=== PATIENT | male | born 1940 | race Caucasian/White ===

== ENCOUNTER 2020-08-04 11:16 | Outpatient (CLI) | payer BC, SELFPAY ==
--- NOTE | ~2020-08-04 | US_ITS ---
EXAMINATION: US abdomen complete DATE: 08/04/2020 11:47 INDICATION: Generalized abdominal pain. TECHNIQUE: Multiple grayscale and Doppler ultrasound images of the abdomen were obtained. COMPARISON: CT abdomen and pelvis 08/04/2017 FINDINGS: The visualized portions of the head, body, and tail of the pancreas are normal. The liver i s normal without focal lesion. There is normal flow in main portal vein. The gallbladder is normal in size. No gallstones or gallbladder wall thickening. There was no sonographic Garcia sign. The common duct is normal and measures 3 mm. The spleen is normal in size. The kidneys are normal in size. Ther e is a 1.3 cm cyst in left kidney. The abdominal aorta is obscured by bowel gas. The inferior vena ca va is normal. IMPRESSION: 1. No etiology for the patient's symptoms. Reviewed, dictated and finalized at location A. BLOCKER
[2020-08-04 12:33] LABS: Basophils Percent Auto 0.3 % (0.2-1.2); Eosinophils Absolute Auto 0.1 K/mm3 (0-0.3); Eosinophils Percent Auto 1.2 % (0-4.4); Hematocrit 45.9 % (42.0-52.0); Hemoglobin 15.4 g/dL (14.0-18.0); Immature Granulocyte Absolute 0.02 K/mm3 (0.00-0.031); Immature Granulocyte Percent A 0.3 % (0-0.5); Lymphocytes Absolute Auto 1.45 K/mm3 (0.9-3.2); Lymphocytes Percent Auto 24.7 % (18.3-44.2); Mean Corpuscular HGB Conc 33.6 g/dl (32-36); Mean Corpuscular Hemoglobin 28.8 pg (26-34); Mean Platelet Volume 9.2 fl (7.4-10.4); Monocytes Absolute Auto 0.5 K/mm3 (0.1-0.6); Monocytes Percent Auto 7.7 % (2.6-8.5); Neutrophils Absolute Auto 3.9 K/mm3 (1.3-6.7); Neutrophils Percent Auto 65.8 % (45.5-73.1); Platelet Count Result 264 k/mm3 (150-375); Red Blood Count 5.34 M/mm3 (4.6-6.20); Red Cell Distribution Width 13.1 % (11.5-14.5); White Blood Count 5.9 K/mm3 (4.5-10.0)
[2020-08-04 12:44] LABS: Alanine Aminotransferase 28 U/L (4-50); Alkaline Phosphatase 80 U/L (38-126); Amylase 51 U/L (30-110); Anion Gap 6 mmol/L (8-16); Aspartate Amino Transferase 34 U/L (17-59); Bilirubin,Total 1.1 mg/dL (0.2-1.3); Blood Urea Nitrogen 13 mg/dL (9-20); Calcium 8.6 mg/dL (8.4-10.2); Carbon Dioxide 28 mmol/L (22-30); Chloride 103 mmol/L (98-107); Estimated Glomerular Filt Rate > 60; Glucose 99 mg/dL (75-110); Lipase 100 U/L (23-300); Potassium 4.1 mmol/L (3.4-5.0); Sodium 137 mmol/L (137-145)
== END 2020-08-04 11:17 | disposition home or self-care (01) ==
LOC: ANHIMG 11:16
PROVIDERS: PCP Family Medicine; Visit Provider Physician Assistant Medical
DX: R10.11 Right upper quadrant pain (principal)
CPT/HCPCS: 36415; 76700; 80053; 82150; 83690; 85025

== ENCOUNTER 2020-08-20 09:24 | Outpatient (CLI) | payer BC, SELFPAY ==
--- NOTE | ~2020-08-20 | NM_ITS ---
NM hepatobiliary w pharm Procedure: Hepatobiliary scan performed following IV administration 5.1 mCi Tc 99m Choletec. At 60 m inutes 1.9 mcg CCK administered IV for evaluation of gallbladder ejection fraction. Indication: Right upper quadrant pain Comparison: Ultrasound dated 08/04/2020 Findings: There is normal radiotracer uptake in the liver parenchyma with prompt excretion into the b iliary tract. Gallbladder visualized at 25 minutes. Small bowel visualized at 60 minutes. Gallbla dder ejection fraction measures 31 %. (Normal is considered 10-90%, but most patients with gallbladde r dysfunction have GBEF of less than 35%) Impression: 1: Low gallbladder ejection fraction measuring 31%. Low GBEF is associated with gallbladder dysfunct ion, although not specific for acute or chronic cholecystitis. Reviewed, dictated and finalized at location A. Impression: 1: Low gallbladder ejection fraction measuring 31%. Low GBEF is associated wit h gallbladder dysfunction, although not specific for acute or chronic cholecyst itis.
== END 2020-08-20 09:25 | disposition home or self-care (01) ==
PROVIDERS: PCP Family Medicine; Visit Provider Physician Assistant Medical
DX: R10.11 Right upper quadrant pain (principal)
CPT/HCPCS: 78227; A9537; J2805

== ENCOUNTER 2022-02-10 06:38 | Outpatient (CLI) | payer BC, SELFPAY ==
--- NOTE | ~2022-02-10 | MR_ITS ---
EXAMINATION: MR shoulder LT wo con DATE: 02/10/2022 07:47 INDICATION: Left shoulder pain. TECHNIQUE: Magnetic resonance imaging (MRI) of the left shoulder was performed without intravenous co ntrast. Sequences included axial PD-weighted FS FSE, coronal oblique PD-weighted FS FSE and T2-weight ed FS FSE, and sagittal oblique T2-weighted FS FSE and T1-weighted FSE. COMPARISON: Left shoulder radiographs 12/23/21 FINDINGS: Coracoacromial arch: The acromion undersurface is curved in morphology with anterior hook (type III). There is severe acro mioclavicular joint osteoarthritis. There is mild subacromial/subdeltoid bursitis. Rotator cuff: There is a full-thickness tear of supraspinatus tendon measuring 9 mm anterior to posterior by 6 mm p roximal to distal. There is mild infraspinatus tendinopathy. Teres minor tendon is normal. There is m ild subscapularis tendinopathy. There is no asymmetric fatty atrophy of the rotator cuff muscle eduardo es. Biceps tendon and glenoid labrum: Biceps tendon is in bicipital groove. There is mild intra-articular biceps tendinopathy. There is tea ring of superior and posterior glenoid labrum. Fluid: There is a small glenohumeral joint effusion. Bones/cartilage: There is partial-thickness cartilage loss of glenoid, deep at the posterior glenoid. There is partial -thickness cartilage loss of humeral head. Osteophytes are noted. IMPRESSION: 1. Full-thickness rotator cuff tear. 2. Moderate glenohumeral joint chondrosis. 3. Severe acromioclavicular joint osteoarthritis. 4. Small glenohumeral joint effusion and mild subacromial/subdeltoid bursitis. 5. Mild intra-articular biceps tendinopathy. Reviewed, dictated and finalized at location A.
== END 2022-02-10 06:39 | disposition home or self-care (01) ==
PROVIDERS: PCP Family Medicine; Visit Provider Orthopaedic Surgery
DX: M75.102 Unspecified rotator cuff tear or rupture of left shoulder, not specified as traumatic (principal); M19.012 Primary osteoarthritis, left shoulder; M25.412 Effusion, left shoulder; M75.52 Bursitis of left shoulder
CPT/HCPCS: 73221

== ENCOUNTER 2022-03-29 02:04 | Day surgery (SDC) | payer BC, SELFPAY ==
[2022-03-18 12:30] VITALS: BMI 31.4
--- NOTE | 2022-03-18 12:36 | PC.NURSE ---
Report to the Outpatient Waiting Room, entrance under the green pavilion located off [facility], at time ____0830___ on date __03/29/22 . Planned Procedure Time: __1030 . Time changes happen often and if your time is changed the preop area will call you the afternoon before. - You and your visitor will be asked to self-screen and do not enter if you have any COVID symptoms. - We encourage only one visitor and NO visitors under age 16 are allowed at this time. Your visitor will receive communication by the phone number that is given day of service. - The patient visitor is requested to social distance or may leave the building when not with patient due to restrictions. - A mask is required within the hospital. Patients may have clear liquids (water, carbonated beverages, clear teas, apple juice) until 3 hours prior to surgery (0730 AM) with a maximum of 20 ounces. - No food from midnight until time of surgery - Infants may have breast milk until 4 hours before surgery, infant formula 6 hours prior to surgery. - Children will be allowed to drink immediately following surgery. If applicable, please bring a bottle or sippy cup to assist with drinking. Juice, water, soda, and popsicles are readily available. For infants on formula, please bring formula the day of surgery. Pacifiers are allowed. Take the following medications with a SIP of water the morning of surgery: _NONE__ Medications to discontinue per physician _RIVAROXABAN PER DR. ALEMAN'S INSTRUCTIONS_ Date to take last dose Please no make-up, nail ugandan, hairspray, perfume, deodorant, or body powder the day of surgery. No jewelry (including any body piercings) or valuables the day of surgery, leave them at home. Please take a shower or bath the night before, or the morning of, surgery with an antibacterial soap. Wear comfortable, loose fitting clothing. Children are encouraged to wear pajamas. - Jewelry must be removed prior to entering the operating room. Rings and piercings that are not removed may be cut off. - The hospital will not accept responsibility for valuables. - Please leave all valuables, including medications, at home the day of surgery. If you are going home after surgery, a licensed bung driver must drive you home. - NO public transportation without another adult. - We recommend that an adult stay with you for 24 hours following discharge. - We also recommend that you do not drive, make important decision, drink alcoholic beverages, or take any drugs that were not prescribed by your health care provider for at least 24 hours after your discharge time. For Pediatric surgeries, we recommend two adults accompany the child home. Follow any additional instructions given to you from your surgeon. If you or anyone in your household have experienced Covid symptoms in the past week, please notify your surgeon or the nurse liaison at the phone number below for possible testing. Telephone instructions given to ____PT and asked if any additional questions and then verbalized understanding. Patient advised to call surgeon office or pre surgery nurse liaison [phone] if any additional questions.
[2022-03-29] VITALS (8 sets, daily range): BP systolic 112–148; BP diastolic 64–82; PULSE 60–76; RESP 12–17; TEMP 36.4–36.6; O2SAT 94–100
[2022-03-29] MEDS: ACETAMINOPHEN 500 MG TABLET 1000 MG PO (09:13)
[2022-03-29] MEDS: LACTATED RINGERS 1,000 ML 30 ML IV CONT (09:15)
[2022-03-29] MEDS: KETOROLAC 15 MG/ML VIAL (*BKC) IV PUSH (09:15)
--- NOTE | 2022-03-29 09:34 | WPDHPUPDATE1 ---
History and Physical Update Update Date/Time: 03/29/22 09:34 History and Physical has been reviewed, including an updated exam of the patient. There are NO changes in the patient's condition. Risks, benefits, and alternatives have been discussed and questions answered. Patient agrees to proceed with procedure.
--- NOTE | 2022-03-29 09:35 | WPDANESEPPF ---
Anes - Initial Pre Proc Eval Procedure: Operation Date: 03/29/22 10:30 Proposed Procedures p Left Rotator Cuff Repair with Distal Clavicle Excision - Barron Boyd MD Date/Time: 03/29/22 09:35 Surgeon: Barron Boyd MD Pre Op Diagnosis: Lt Rot Cuff Tear, AC Arthritis Patient Data Age: 82 Gender: M Height: 1.7 m Weight: 89.8 kg Last Vital Signs Temp 36.6 C 03/29/22 08:59 Pulse 60 03/29/22 08:59 Resp 16 03/29/22 08:59 BP 148/66 H 03/29/22 08:59 Pulse Ox 99 03/29/22 08:59 O2 Del Method Room Air 03/29/22 08:59 Allergies Allergy/AdvReac Type Severity Reaction Status Date / Time No Known Allergies Allergy Verified 03/29/22 08:36 Home Medications Medication Instructions Recorded Confirmed Type finasteride 5 mg tablet 5 mg PO DAILY 06/11/19 03/29/22 History terazosin 5 mg capsule 5 mg PO DAILY 06/11/19 03/29/22 History rivaroxaban 20 mg tablet (Xarelto) 20 mg PO QPM #90 tabs 12/22/21 03/29/22 Rx omeprazole 20 mg capsule,delayed 20 mg PO DAILY #90 caps 12/24/21 03/29/22 Rx release rosuvastatin 10 mg tablet See Rx Instructions .Route 01/14/22 03/29/22 Rx .COMPLEX #90 tabs Patient hx anesthesia problems: none Family hx anesthesia problems: other (collapsed lung) Results Review: All pre-operative results and documents have been reviewed as part of the pre-operative evaluation. [facility] Past Medical History Medical History Abdominal pain Acute hemorrhoid Arthritis of left acromioclavicular joint BMI 29.0-29.9,adult BMI 30.0-30.9,adult BMI greater than 30 Constipation Factor 5 Leiden mutation, heterozygous Flatulence History of blood clots History of pulmonary embolism Left rotator cuff tear Surgical History Surgical History H/O shoulder surgery right rotator cuff repair 2004 History of knee joint replacement right TKA x2 - revision 2000 Family History Family History Mother Cerebrovascular accident Diabetes mellitus Acute myocardial infarction Heart disease Other Tuberculosis Father Acute myocardial infarction Sibling Diabetes mellitus Social History Social History Smoking status: Never smoker Tobacco type: cigarettes Second hand tobacco smoke exposure: Yes Additional smoking assessment comments: Pt stated he tried it but never kept smoking Alcohol intake: current Alcohol use details: STATES OCCASIONAL BEER WHEN GOLFING 10/MONTH MAYBE Substance use: never Substance use type: does not use Living arrangements: with family 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 Gender identity (if verbalized by the patient): Male Sexual Orientation (if Verbalized by the Patient): Straight or Heterosexual Spiritual care concerns: Yes ( Caodaism) Agree to blood products: No Anes - Eval Final PreProcedure Day of Procedure 03/29/22 09:35 Patient weight: overweight Heart: regular rate and rhythm Lungs: clear to auscultation Airway: Mallampati scale class II Neurological: other (hard of hearing) Last oral intake: >/= 8 hours ASA classification: III Emergent: no Anesthetic plan: proceed Anesthesia type and monitoring: general ETT and standard monitoring Results Review: All pre-operative results and documents have been reviewed as part of the pre-operative evaluation. Informed Consent: The patient's anesthetic plan and its attendant risks and benefits were discussed with the patient/family/POA. Questions were solicited and answers provided to the satisfaction of the patient/family/POA.
--- NOTE | 2022-03-29 09:59 | WPDANESPNB ---
Anes - Peripheral Nerve Block Date/Time: 03/29/22 09:59 I have discussed with the patient/family/POA the placement of a peripheral nerve block for post-operative pain management, including associated risks, benefits, complications, and side effects. Alternative methods of post-operative analgesia were detailed. Questions were solicited and answers provided to the satisfaction of the patient/family/POA. Time-Out: A pre-procedural Time-Out was completed immediately before starting the procedure and confirmed: Patient Identification, Site, Procedure, Patient Position and the Availability of Requisite Equipment. Clinical Indications: Acute post-operative pain management requested by the operative surgeon. Nerve Block Insertion Note Anes-nerve block: interscalene left Patient position: other (sitting) Skin prep: chlorhexidine Needle: 22 gauge, stimulating, insulated echogenic needle. Needle length: 50 mm Technique: nerve stimulation lost at (mA) (0.3) and ultrasound Technique comment: mid2mg [id number] Injectate: bupivacaine 0.5% with epi 5 mcg/ml (30ml no epi) and dexamethasone (mg) (4) Observations: tolerated well Complications: none Procedure start time:: 954 Procedure end time:: 1001
[2022-03-29] MEDS: ceFAZolin 2 GM/D5W 50 ML 2 GM/50 ML BAG IVPB (10:16)
[2022-03-29] MEDS: BUPIVACAINE/EPINEPHRINE 0.25% 50 ML VIAL 10 ML INFILTRATE (10:49)
--- NOTE | 2022-03-29 11:26 | W.PM.PROC2 ---
Procedure Note - Detailed Date of Procedure 03/29/22 Pre-op Diagnosis Lt Rot Cuff Tear, AC Arthritis Post-op Diagnosis Same Procedure Performed Left shoulder rotator cuff repair with distal clavicle excision. Surgeon Barron Boyd MD Chemical Engineering Technologist Katia Vásquez Anesthesia General and Regional Description of Procedure Patient was identified and proper site identified. In the preop holding area the anesthesia team performed a left upper extremity block. He was then taken to the operating room and transferred to the or table taking care to pad the torso and extremities. After general anesthetic induction and intubation, he was put in a semi beach chair position in the usual manner for a left shoulder procedure. His head was secured taking care to neither rotate nor extend the head and neck. The left upper extremity was prepped and draped free in usual sterile fashion. The subcutaneous tissue in the area of the incision was injected with 10 cc of 0.25% Marcaine and epinephrine solution. An oblique anterior incision was made extending from the AC joint distally in line with the fibers of the deltoid. Subcutaneous tissue was sharply dissected down to the deltoid fascia. The deltoid was dissected off the anterior portion of the acromion in the distal end of the clavicle. A 2 cm split was made at the junction between the anterior and middle thirds of the deltoid. Using the microsagittal saw the last 8 mm of clavicle removed. The saw was also used to perform the acromioplasty and then the undersurface of the acromion was rasped smooth. There was a midsubstance rupture of the rotator cuff. There were erosive changes superiorly from the spurring and the distal aspect of this was the small rupture making this an L-shaped tear. The tendon edges were freshened up and then reapproximated with multiple 2. Ethibond sutures. This gave a baptiste repair which was stable as the shoulder was taken through range of motion. The wound was irrigated with sterile NaCl solution. The deltoid was repaired back to the acromion with 2. Ethibond suture passed through bone and the remainder of the deltoid repair carried out with 2. Vicryl. Subcutaneous tissue was reapproximated with 3-0 V lock and then tissue adhesive used for the skin. Sterile dressing was applied. There were no known intraoperative complications, and perioperative antibiotics were administered. Estimated Blood Loss 20 Drains No Packing No Pathology None sent Complications No immediate complications Condition Stable Disposition PACU [facility] Billing Surgery - Charge Forward: Surgery Billing ([id number], [id number])
== END 2022-03-29 13:21 | disposition home or self-care (01) ==
PROVIDERS: PCP Family Medicine; Visit Provider Orthopaedic Surgery
PROC: (CPT 23420; principal; 2022-03-29 10:30)
DX: M75.102 Unspecified rotator cuff tear or rupture of left shoulder, not specified as traumatic (principal); M19.012 Primary osteoarthritis, left shoulder; G89.18 Other acute postprocedural pain; D68.51 Activated protein C resistance; Z86.711 Personal history of pulmonary embolism; Z86.718 Personal history of other venous thrombosis and embolism; Z79.01 Long term (current) use of anticoagulants
CPT/HCPCS: 23412; 23120; 64415; A4565; A9270; J0690; J1100; J1885; J2250; J2370; J2405; J2704; J3010; J7120

== ENCOUNTER 2022-05-12 08:00 | Outpatient (RCR) | payer BC, SELFPAY ==
[2022-03-31 08:35] VITALS: BP_SYST 40
--- NOTE | 2022-03-31 09:40 | PTOPEVAL1 ---
Assessment and note entered by Manisha Palmer, PT Evaluation Information Assessment Status Evaluation Diagnosis L rotator cuff repair with excision of distal clavicle Onset 03-29-22 Subjective Information this shoulder is the most pain ever had; cannot sleep or get comfortable; pain med is not helping --hydrocodone- only taken 1 pill; have used ice constantly on shoulder; Reported Pain Level Pain Score Self Report Additional Pain Score Comments pain range 8-9/10; nerve block wore off yesterday afternoon and really bad pain since then; keeping the sling on and pillows under arm; using ice constantly; discussed sleep position- in recliner with pillows sling can remove in home PRN and wear when go out; educated on progression of activity/ exercises; at this time--PROM only to shoulder Assessment PT Clinical Summary Al has had L rotator cuff repair surgery with distal clavicle excision 2 days ago. He reports high pain level and discomfort, unable to sleep. With the evaluation, passive ROM to L shoulder: flexion and abduction to 40' and ER 20', he reported increased pain and not able to tolerate any further motion; active elbow, wrist and hand ranges are WNL. Skilled PT services are indicated for post-op shoulder rehab: progression of exercises per protocol: passive, active assisted to active motions, with use of modalities for pain control and education for HEP and posture of shoulder. Plan of Care Interventions Electrical Stimulation,Hot Pack/Cold Pack,Neuro Re -education,Patient/Caregiver Education,Therapeutic Activities,Therapeutic Exercise PT Services Indicated Yes Treatment Frequency and 2x/wk for 6 weeks Duration These treatments will address the objective and functional deficits as defined above. The patient will be advanced safely and appropriately in order for the patient to progress towards his/her prior level of function. Additional exercises will be introduced and as well as a comprehensive home exercise program upon discharge, if needed, ?to ensure carryover of functional gains achieved in the clinic. This treatment plan has been reviewed and agreement upon by the patient.
--- NOTE | 2022-04-28 11:12 | PCPTNOTE ---
Patient called & cancelled scheduled appointment today and his other later in the week, due to being ill.
--- NOTE | 2022-04-30 09:00 | PCPTNOTE ---
Patient called & cancelled scheduled appointment this date due to being sick.
[2022-05-12 08:05] VITALS: BP_SYST 125
--- NOTE | 2022-05-12 08:39 | PTOPPROG ---
Assessment and note entered by Manisha Palmer, PT Evaluation Information Assessment Status Progress Diagnosis L rotator cuff repair with excision of distal clavicle Onset 03-29-22 Subjective Information Al reports: shoulder really bothering him, pain range 5-8/10, front of shoulder, cannot lie on L side, problems sleeping--cannot get comfortable, sleeping in the chair; is not taking any pain meds; use ice and rest, helps some, but always hurts; stim treatments help; Assessment PT Clinical Summary Al has received 7 PT sessions, s/p L shoulder surgery. Compared to the initial evaluation: shoulder pain has decreased from 8-9 to 5-8/10; strength and active shoulder ROMs have increased, but limited due to continued pain over anterior GH joint; sleeping and activity levels are disrupted due to pain. Continue PT treatment. Progression of HEP and activity tolerance. Plan of Care Interventions Electrical Stimulation,Hot Pack/Cold Pack,Manual Therapy,Neuro Re-education,Patient/Caregiver Education,Therapeutic Activities,Therapeutic Exercise,Ultrasound PT Services Indicated Yes Treatment Frequency and 2x/wk for 3 weeks Duration These treatments will address the objective and functional deficits as defined above. The patient will be advanced safely and appropriately in order for the patient to progress towards his/her prior level of function. Additional exercises will be introduced and as well as a comprehensive home exercise program upon discharge, if needed, ?to ensure carryover of functional gains achieved in the clinic. This treatment plan has been reviewed and agreement upon by the patient.
--- NOTE | 2022-05-12 11:57 | PCPTNOTE ---
PHYSICAL THERAPY DISCHARGE 05-12-22 Attending Provider: Barron Boyd MD Patient:Mukund Crain Date of :1940 Discharge PT services, per office notes from today's follow up dr appointment. Al is to continue with his home exercise program on his own at home. Refer to the progress report for his status at the last PT session. Thank you for referring Mr. Crain to [facility].
== END 2022-06-14 09:50 | disposition home or self-care (01) ==
LOC: ANHPT 08:00
PROVIDERS: PCP Family Medicine; Referring Provider Orthopaedic Surgery; Visit Provider Orthopaedic Surgery
DX: Z48.89 Encounter for other specified surgical aftercare (principal); Z98.890 Other specified postprocedural states
CPT/HCPCS: 97014; 97110; 97112; 97161; 97530; G0283

== ENCOUNTER 2022-08-02 18:01 | Outpatient (CLI) | payer BC, SELFPAY ==
--- NOTE | ~2022-08-02 | XR_ITS ---
XR_CERV2-3V_CR DATE: 08/02/2022 18:17 INDICATION: Neck pain for 1.5 weeks, radiating to both upper extremities TECHNIQUE: AP, open-mouth, lateral and swimmer views COMPARISON: 06/01/2012 cervical spine FINDINGS: Chronic stable severe degenerative disc disease and 3-4 mm retrolisthesis at C3-4, not comp letely change since 06/01/2012. The remaining cervical interspaces are well preserved. There is prominent degenerative change at the articulation of the anterior arch of C1 and the odontoi d process of C2. Minimal anterolisthesis at C2-3. There is approximately 1.8 mm anterolisthesis at C4-5 and approximately 2.7 mm anterolisthesis at C5- 6. Prominent degenerative change at the apophyseal joints throughout the cervical spine. No fracture or dislocation or locked facet is evident. No prevertebral soft tissue swelling. IMPRESSION: Cervical spondylosis, most severe at C3-4, with chronic L3-4 millimeters retrolisthesis a t C3-4 since 06/01/2012 1.8 mm and 2.7 mm anterolisthesis at C4-5 and C5-6, respectively Reviewed, dictated and finalized at Location A. Reviewed, dictated and finalized at location L. ER [employer]ER IMPRESSION: Cervical spondylosis, most severe at C3-4, with chronic L3-4 millim eters retrolisthesis at C3-4 since 06/01/2012 1.8 mm and 2.7 mm anterolisthesis at C4-5 and C5-6, respectively
== END 2022-08-02 18:02 | disposition home or self-care (01) ==
LOC: ANHIMG 18:04
PROVIDERS: PCP Family Medicine; Visit Provider Physician Assistant Medical
DX: M47.892 Other spondylosis, cervical region (principal)
CPT/HCPCS: 72040

== ENCOUNTER 2022-08-24 08:45 | Outpatient (RCR) | payer BC, SELFPAY ==
--- NOTE | 2022-08-06 13:20 | PTOPEVAL1 ---
Assessment and note entered by Manisha Palmer, PT Evaluation Information Assessment Status Evaluation Diagnosis cervicalgia Onset mid Jun- few weeks ago Subjective Information started with neck pain and moved into L shoulder blade; no trauma or injury to shoulder/neck; had xray- report states: severe DDD C 3-4; retrolisthesis C 3-4 and anteriolisthesis C 4-5 & C 5-6; the new muscle relaxer does not do anything for the pain; Reported Pain Level Pain Score Self Report Additional Pain Score Comments pain range of 3-10/10 neck, base of scalp and was in L scapular area- not today; increase pain with moving neck- shooting pain; hurts at base of head - like dull headache; used heat/ice, but they do not help; pain med not helping; keep head still/ not move is only thing that helps the pain; discussed use of cervical collar PRN, to support neck and decrease pain; rest in supine or recliner, with head supported; do not sleep well in general-- sleep pattern is same, awaken about every 2 hours; Assessment PT Clinical Summary Mukund has the diagnosis of cervicalgia. His history includes R and L shoulder surgery. The cervical xray reports degenerative changes of his cervical spine. Initially his pain was into his L scapula, but now is most at the base of his skull. With the evaluation, he has decrease cervical ROM of flexion, extension, rotation R and L--all increase his pain; he has poor positioning of his neck and shoulders; spasms and tenderness over upper cervical and occiput. Skilled PT services are indicated for modalities to decrease pain and spasms, therapeutic exercises to improve ROM and posture of neck, with education for home exercises and position. Plan of Care Interventions Electrical Stimulation,Hot Pack/Cold Pack,Manual Therapy,Mechanical Traction,Patient/Caregiver Education,Therapeutic Activities,Therapeutic Exercise,Ultrasound,Other Other Interventions taping PT Services Indicated Yes Treatment Frequency and 2x/wk for 4 weeks Duration These treatments will address the objective and functional deficits as de
--- NOTE | 2022-10-05 10:35 | PCPTNOTE ---
PHYSICAL THERAPY DISCHARGE 10-05-22 Attending Provider: ROBERTH Ritter Patient:Mukund Crain Date of :1940 Mr. Crain has not returned for any further treatments since 08/24/2022, therefore he will be discharged at this time. He has received 6 PT sessions, from August 06 to , for the diagnosis of neck pain. The goals were not assessed. Thank you for referring this patient to [facility].
== END 2022-10-21 10:52 | disposition home or self-care (01) ==
LOC: ANHPT 08:45
PROVIDERS: PCP Family Medicine; Visit Provider Physician Assistant Medical
DX: M54.2 Cervicalgia (principal)
CPT/HCPCS: 97014; 97110; 97140; 97161; 97530; G0283

== ENCOUNTER 2022-10-14 13:45 | Outpatient (CLI) | payer BC, SELFPAY ==
--- NOTE | ~2022-10-14 | MR_ITS ---
EXAMINATION: MR lumbar spine wo con DATE: 10/14/2022 14:17 INDICATION: Other intervertebral disc degeneration. TECHNIQUE: Magnetic resonance imaging (MRI) of the lumbar spine was performed without intravenous con trast. Sequences included sagittal T2-weighted FSE, sagittal T2-weighted FS FSE, sagittal T1-weighted FSE, and axial T2-weighted FSE. COMPARISON: Lumbar spine MRI 05/06/2008 FINDINGS: There is 7 degrees levocurvature of lumbar spine. There is 4 mm retrolisthesis of L4 on L5. There is mild chronic anterior wedging of T12 vertebral body. There are Schmorl's nodes at most leve ls. There is mildly decreased disc height at L3-L4 and severely decreased disc height at L4-L5 and L5 -S1 with endplate remodeling. The distal spinal cord signal intensity is normal. The conus medullaris is at L2-L3. The following disc levels are specifically discussed: L1-L2: The disc is bulging. There is mild bilateral facet joint osteoarthritis. There is mild right a nd moderate left neural foraminal stenosis. There is mild central canal stenosis. L2-L3: The disc is bulging and has an annular fissure. There is severe right and mild left facet join t osteoarthritis. There is mild bilateral neural foraminal stenosis. There is no central canal stenos is. L3-L4: The disc is bulging and has an annular fissure. There is severe bilateral facet joint osteoart hritis. There is a 5 mm synovial cyst in right lateral recess. There is moderate bilateral neural for aminal stenosis. There is mild central canal stenosis. There is severe stenosis of right lateral rece ss. L4-L5: The disc is bulging and has an annular fissure. There is severe right and moderate left facet joint osteoarthritis. There is moderate bilateral neural foraminal stenosis. There is mild central ca nal stenosis. L5-S1: The disc is bulging and has an annular fissure. There is severe bilateral facet joint osteoart hritis. There is mild bilateral neural foraminal stenosis. There is mild central canal stenosis. IMPRESSION: 1. Severe lumbar spondylosis, worsened from 05/06/2008. Reviewed, dictated and finalized at location A.
== END 2022-10-14 13:46 | disposition home or self-care (01) ==
PROVIDERS: PCP Family Medicine; Visit Provider Physician Assistant Medical
DX: M51.36 Other intervertebral disc degeneration, lumbar region (principal); M47.896 Other spondylosis, lumbar region
CPT/HCPCS: 72148

== ENCOUNTER 2023-05-24 12:01 | Outpatient (CLI) | payer BC, SELFPAY ==
--- NOTE | ~2023-05-24 | XR_ITS ---
XR chest 2V 05/24/2023 12:15 Indication: Cough, shortness of breath and congestion Procedure: 2 view chest Comparison: No prior studies for comparison. Findings: Heart size normal. No focal air space disease, pulmonary edema, pleural effusion or suspect ed pneumothorax. No acute osseous abnormality. Impression: 1: No acute cardiopulmonary disease. Reviewed, dictated and finalized at location L. 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
== END 2023-05-24 12:02 | disposition home or self-care (01) ==
PROVIDERS: PCP Family Medicine; Visit Provider Physician Assistant
DX: J40 Bronchitis, not specified as acute or chronic (principal)
CPT/HCPCS: 71046

== ENCOUNTER 2023-07-21 14:21 | Outpatient (CLI) | payer BC, SELFPAY ==
--- NOTE | ~2023-07-21 | XR_ITS ---
EXAMINATION: XR ankle RT 2V DATE: 07/21/2023 14:50 INDICATION: Right ankle pain. Fall. TECHNIQUE: 2 views of right ankle were obtained. COMPARISON: None. FINDINGS: Bone alignment is normal. No fracture. There is chronic heterotopic ossification distal to medial malleolus. There is mild midfoot osteoarthritis. There is an enthesophyte at plantar aspect of calcaneal tuberosity. IMPRESSION: 1. Mild midfoot osteoarthritis. Reviewed, dictated and finalized at location E. DRY OPERATOR
--- NOTE | ~2023-07-21 | XR_ITS ---
EXAMINATION: XR ankle LT 2V DATE: 07/21/2023 14:50 INDICATION: Left ankle pain. Fall. TECHNIQUE: 2 views of left ankle were obtained. COMPARISON: Left ankle radiographs 02/12/2019 FINDINGS: Bone alignment is normal. No fracture. There is mild midfoot osteoarthritis. There is an en thesophyte at plantar aspect of calcaneal tuberosity. IMPRESSION: 1. Mild midfoot osteoarthritis. Reviewed, dictated and finalized at location E. DISPATCHER
== END 2023-07-21 14:22 | disposition home or self-care (01) ==
PROVIDERS: PCP Family Medicine; Visit Provider Nurse Practitioner Family
DX: S99.919A Unspecified injury of unspecified ankle, initial encounter (principal); X58.XXXA Exposure to other specified factors, initial encounter; M19.071 Primary osteoarthritis, right ankle and foot; M19.072 Primary osteoarthritis, left ankle and foot
CPT/HCPCS: 73600

== ENCOUNTER 2023-08-14 07:40 | Outpatient (CLI) | payer BC, SELFPAY ==
--- NOTE | ~2023-08-14 | MR_ITS ---
MRI of the left ankle Clinical history: Spontaneous rupture flexor tendon Technique: Coronal proton-density and proton-density fat-sat images, axial proton-density and proton- density fat-sat images, and sagittal proton-density and proton-density fat-sat images were acquired. Findings: Syndesmotic ligaments are intact. Anterior talofibular ligament, posterior talofibular liga ment, and calcaneofibular ligament are intact. Deltoid ligament is intact. Medial flexor tendons, peroneal tendons, anterior extensor tendons, and Achilles tendon are intact. T here is focal fluid distention of the flexor hallucis longus tendon sheath posterior to the distal ti margarette. No osteochondral lesion of the talar dome identified. There reactive marrow signal changes due to deg enerative change at the subtalar joint, particularly along the anterior process of the calcaneus and the inferior talus. No significant joint effusion seen. There are small plantar calcaneal spur with mild thickening of the origin of the plantar fascia, no s ignificant soft tissue edema. There is mild edema in the sinus Tarsi, nonspecific. No soft tissue mas s or fluid collection evident otherwise. There is mild nonspecific subcutaneous soft tissue edema. Impression: Possible focal tenosynovitis of the proximal flexor hallucis longus tendon sheath. Degenerative change of the subtalar joint, as noted above. Small plantar calcaneal spur with mild chronic thickening of the proximal plantar fascia. Mild edema within the sinus Tarsi, nonspecific. Correlate for sinusitis the syndrome. Reviewed, dictated and finalized at [facility]. Impression: Possible focal tenosynovitis of the proximal flexor hallucis longus tendon keita th. Degenerative change of the subtalar joint, as noted above. Small plantar calcaneal spur with mild chronic thickening of the proximal plant ar fascia. Mild edema within the sinus Tarsi, nonspecific. Correlate for sinusitis the syn drome.
== END 2023-08-14 07:41 | disposition home or self-care (01) ==
LOC: ANHIMG 07:41
PROVIDERS: PCP Family Medicine; Visit Provider Podiatrist Foot & Ankle Surgery
DX: S96.012A Strain of muscle and tendon of long flexor muscle of toe at ankle and foot level, left foot, initial encounter (principal); X58.XXXA Exposure to other specified factors, initial encounter; M77.32 Calcaneal spur, left foot
CPT/HCPCS: 73721

== ENCOUNTER 2023-12-07 10:16 | Outpatient (CLI) | payer BC, SELFPAY ==
--- NOTE | ~2023-12-07 | XR_ITS ---
EXAMINATION: XR chest 2V 12/07/2023 10:35 INDICATION: Chronic cough PROCEDURE: 2 view chest COMPARISON: Comparison to multiple prior studies sequentially, with oldest reviewed study dated 05/2016. FINDINGS: The lungs are clear. The cardiomediastinal silhouette is within normal limits. There are no pleural effusions. There is no pneumothorax suspected. IMPRESSION: 1: NO ACUTE CARDIOPULMONARY DISEASE. Reviewed, dictated and finalized at location B.
== END 2023-12-07 10:17 | disposition home or self-care (01) ==
PROVIDERS: PCP Family Medicine; Visit Provider Physician Assistant Medical
DX: R05.3 Chronic cough (principal)
CPT/HCPCS: 71046

== ENCOUNTER 2024-05-15 13:25 | Outpatient (CLI) | payer BC, SELFPAY ==
--- NOTE | ~2024-05-15 | XR_ITS ---
Left elbow Technique: AP, oblique, and lateral views were obtained. Clinical History: Pain Findings: No acute fracture or dislocation is seen. Osseous alignment is anatomic. Joint spaces are p reserved. There is no displacement of the fat pads, and no evidence of joint effusion. There is exten sive soft tissue swelling over the extensor aspect of the proximal forearm and posterior aspect of th e elbow.. Impression: Extensive soft tissue swelling at the extensor aspect of the proximal forearm and posterior aspect of the elbow. No osseous or articular abnormality evident. Reviewed, dictated and finalized at location M. UNTS RECEIVABLE ANALYST Impression: Extensive soft tissue swelling at the extensor aspect of the proximal forearm a nd posterior aspect of the elbow. No osseous or articular abnormality evident.
== END 2024-05-15 13:26 | disposition home or self-care (01) ==
PROVIDERS: PCP Physician Assistant Medical; Visit Provider Physician Assistant Medical
DX: M25.422 Effusion, left elbow (principal)
CPT/HCPCS: 73080

== ENCOUNTER 2024-07-19 10:31 | Outpatient (CLI) | payer BC, SELFPAY ==
--- NOTE | ~2024-07-19 | XR_ITS ---
Right Knee Technique: AP and lateral views were obtained. Clinical History: Pain Findings: No fracture or dislocation is seen. 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 Soft tissues are unre markable. No joint effusion is seen. Impression: No acute abnormality. 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 Reviewed, dictated and finalized at location . SCIENTIST Impression: No acute abnormality. 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
--- OUTSIDE RECORDS SUMMARY | 2024-07-19 10:58 | XMS_ITS | Data Portability ---
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 Plan of Treatment Reminders Order Date Submit Date Provider Last Modified By Organization Details Last Modified Time Details Appointments None record ed. Lab None record ed. Referral None record ed. Procedures None record ed. Surgeries None record ed. Imaging None record ed. Medication Orders None record ed. Patient TargetsNo targets recorded. Patient Instructions Encounter Date Encounter Id Patient Instructions Last Modified By Organization Details Last Modified Time 09/13/2018 [id number] Patient counsele d to F/U immediately if temp. greater than 100.4, if is unable to urinate, increased rectal pain or any other concerns. Not available 09/13/2018 12:02:36 He will follow u p in 6 - 8 weeks and I will start with his RP but also might look at both his LL and RA. We may or may not do a 4th treatment. Not available 09/13/2018 12:24:11 11/01/2018 [id number] Patient counsele d to F/U immediately if temp. greater than 100.4, if is unable to urinate, increased rectal pain or any other concerns. Not available 11/01/2018 13:33:04 He will follow u p with me in 8 - 10 weeks. I advised that if he does get a colonoscopy, I would like him to get this before he follows up with me again. I will retreat his RP and also probably his LL. Not available 11/01/2018 13:33:55 03/19/2020 [id number] Patient counsele d to F/U immediately if temp. greater than 100.4, if is unable to urinate, increased rectal pain or any other concerns. Not available 03/19/2020 20:04:05 He will follow u p in 1 - 2 weeks and I will treat his LL and RA internal hemorrhoids (probably). We will then wait 6 - 8 weeks and retreat all three areas. We will probably do a 4th treatment 6 - 8 weeks after that. On today's visit I spent a total of {{25# 30 35 40 45 50 55 60}} minutes [id number] with the patient and over 50% of this time was spent discussing treatment options, risks/benefits of each option and alternatives and answering his questions. Not available 03/19/2020 20:04:56 03/27/2020 [id number] Patient counsele d to F/U immediately if temp. greater than 100.4, if is unable to urinate, increased rectal pain or any other concerns. Not available 03/27/2020 16:14:49 He will follow u p in 5 - 6 weeks and I will try to retreat all three areas. We may or may not do another treatment 6 - 8 weeks after that. Not available 03/27/2020 16:15:17 05/08/2020 [id number] Patient counsele d to F/U immediately if temp. greater than 100.4, if is unable to urinate, increased rectal pain or any other concerns. Not available 05/10/2020 11:50:33 He will follow u p with me only as needed. I advised that if he feels he needs another treatment the soonest I would see him would be in 3 months. Not available 05/10/2020 11:51:07 Reason for Referral None Reported. Problems Name Problem SNOMED Code Status Onset Date Resolution Date Notes Provider Name and Address Organization Details Recorded Time Taking high risk medication 5243058008590 07 Active 2018 Laura Briscoe MD [address] [place] [address],[address], [address] [place] [address] [facility] 0 11:50:26 Pile easily reducible 532648615 Active 2018 Tx #1: 9 1.2 x 10 RP Tx #2: 9 1.2 x 5 LL and 1.2 x 2 RA Tx #3: 11/01/18 1.2 x 8 RP Tx #4: 1.2 x 10 RP Tx #5: 1.2 x 6 LL and 1.2 x 3 RA Tx #6: 1.2 x 8 RP and 1.2 x 3 LL Laura Briscoe MD [facility] [address] [facility],[address], [place], [address], [facility] 0 11:46:17 External hemorrhoids 26440743 Active 2018 Laura Briscoe MD [facility]. [facility],[address], [place], [address], [facility] [place] 9 19:20:25 Factor V Leiden mutation 297433035 Active 2018 [place] [address] [place] [address],[address], [place], [address], [facility] [place] 9 19:20:31 Screening for malignant neoplasm of colon Active 2018 Laura Briscoe MD [address] [place] [address],[address], [place], [address], [facility] [place] 9 13:31:27 Problem Notes None recorded. Procedures Surgical History Date Name Laterality Status Provider Name and Address Organization Details Recorded Time 05/08/20 IR completed Laura Briscoe MD [address] [place] [address],[address], [place], [address], [facility] [place] 05/10/2020 11:46:07 03/27/20 IR completed Laura Briscoe MD [address] [place] [address],[address], [place], [address], [facility] [place] 03/27/2020 12:33:45 03/19/20 20 IRC completed Laura Briscoe MD [address] [place] [address],[address], [place], [address], [facility] 03/19/2020 20:00:52 01/04/20 19 Colonoscopy completed Laura Briscoe MD [address] [place] [address],[address], [place], [address], [facility] [place] 03/19/2020 19:58:11 11/02/19 19 IRC completed Laura Briscoe MD [address] [place] [address],[address], [place], [address], [facility] 11/01/2018 13:29:38 09/14/19 19 IRC completed Laura Briscoe MD [address] [place] [address],[address], [place], [address] [facility] [address] 09/13/2018 20:24:05 08/25/19 19 IRC completed Laura Briscoe MD [address] [place] [address],[address], [place], [address] [place] [address]oid [facility] 09/12/2018 19:17:07 05/30/19 00 [facility] 08/08/2018 14:44:28 05/30/18 99 Colonoscopy completed Laura Briscoe MD [address] [place] [address],[address], [place], [address] [address] [facility] [place] 09/12/2018 19:13:56 05/30/18 94 Hemorrhoidectomy completed [facility] 08/08/2018 14:44:13 Imaging Results None recorded. Procedure Notes None recorded. Medical Equipment None Reported. Allergies No known drug allergies Medications Name Sig Start Date Stop Date Status Note LastModified by Organization Details LastModified Time celecoxib 200 mg capsule 03/19 completed Not Available Not Available Not Available cyclobenzaprine 10 mg tablet 09/13 completed Not Available Not Available Not Available terazosin 5 mg capsule active Not Available Not Available Not Available prednisone 10 mg tablet 03/19 completed Not Available Not Available Not Available tizanidine 2 mg tablet 09/13 completed Not Available Not Available Not Available triamcinolone acetonide 0.5 % topical cream 03/19 completed Not Available Not Available Not Available azithromycin 250 mg tablet 03/19 completed Not Available Not Available Not Available acetaminophen 300 mg-codeine 30 mg tablet 09/13 completed Not Available Not Available Not Available temazepam 15 mg capsule 03/19 completed Not Available Not Available Not Available omeprazole 20 mg capsule,delayed release TK ONE C PO QD active Not Available Not Available No t Available cefuroxime axetil 500 mg tablet 09/13 completed Not Available Not Available Not Available hydrocodone 10 mg-chlorpheniram ine 8 mg/5 mL oral susp extend.rel 12hr 03/19 completed Not Available Not Available Not Available finasteride 5 mg tablet TK 1 T PO D active Not Available Not Available No t Available amoxicillin 875 mg-potassium clavulanate 125 mg tablet 03/19 completed Not Available Not Available Not Available rosuvastatin 10 mg tablet TK 1 T PO D active Not Available Not Available No t Available rosuvastatin 20 mg tablet 09/13 completed Not Available Not Available Not Available Xarelto 20 mg tablet active Not Available Not Available Not Available Fluzone High-Dose 2019-20 (PF) 180 mcg/0.5 mL intramuscular syringe 03/19 completed Not Available Not Available Not Available Fluzone High-Dose Quad (PF) 240 mcg/0.7 mL IM syringe 03/19 completed Not Available Not Available Not Available Vitals Date Recorded Body height Provider Name an d Address Organization Details Last Updated DateTime 09/13/2018 172.72 cm Gaby Winston [facility] [place] 09/13/2018 11:39:58 Date Recorded Body height Provider Name an d Address Organization Details Last Updated DateTime 11/01/2018 172.72 cm Susana Henley [facility] [place] 11/01/2018 12:49:23 Date Recorded Body temperature Provider Name a nd Address Organization Details Last Updated DateTime 03/19/2020 96 [degF] Silvina Ro [facility] [place] 03/19/2020 10:42:36 Date Recorded Body temperature Provider Name a nd Address Organization Details Last Updated DateTime 03/27/2020 97.9 [degF] Silvina [place] [facility] [place] [facility] [place] 03/27/2020 11:52:25 Date Recorded Body temperature Provider Name a nd Address Organization Details Last Updated DateTime 05/08/2020 96.2 [degF] Nya Muniz [place] [facility] [place] [facility] [place] 05/08/2020 10:49:56 Social History Question Answer Notes LastModified by Organizat ion Details LastModified Time Tobacco Smoking Status Never Smoker Not Available [facility] 04/01/2020 03:38:34 Do You Have An Advance Directive? Yes 08/10/2016 [id number] Information not available 04/01/2020 Alcohol Use Yes Information n ot available 08/08/2018 Alcohol Amount Occasional Quit 2008 Information not available 08/08/2018 Caffeine Use Yes Information not available 08/08/2018 Caffeine Type Half-caf Information not available 08/08/2018 Caffeine Amount 2 Daily Information not available 08/08/2018 Illicit Drug Use No Information not available 08/08/2018 What Was The Date Of Your Most Recent Tobacco Screening? 11/01/2018 [id number] Information not available 04/01/2020 Sex: Unknown Functional Status None recorded. Mental Status None recorded. Family History Relationship Description Onset Age of this Age Resolved Age Notes LastModified by Organization Details LastModified Time Mother Heart disease 82 Not available 2018 14:43:13 Medical History Condition Response Coronary Artery Disease N Other N Atrial Fibrillation N Kidney Stones N Hyperthyroidism N Hernia N Depression N COPD N Hypothyroidism N Glaucoma N Accidental Bowel Leakage N Headaches/Migraines N Deep Vein Thrombosis Y Anxiety Disorder N Cardiac Dysrhythmia N MRSA/VRE Exposure N Genital Herpes N Diverticulosis N Cancer N Stroke N Head Trauma N Crohn's Disease N Genital Warts N Liver Disease/Hepatitis N HIV/AIDS N High Cholesterol Y Irritable Bowel Syndrome N Kidney Disease N Autoimmune Disease N Anemia N Celiac Disease N Arthritis/Gout N Anal/Rectal Trauma/Injury N Diabetes N Cataracts N Bleeding Disorder Y Seizures/Epilepsy N Congestive Heart Failure (CHF) N Diverticulitis Y Asthma N Reflux/GERD Y Ulcerative Colitis N Sleep Apnea N Mitral Valve Prolapse N Aneurysm N Heart Disease N Pulmonary Embolism N Hypertension N Colon/Rectal Polyps N Past Encounters Encounter ID Performer Location Encounter Start Date Encounter Closed Date Diagnosis/Indication Diagnosis SNOMED-CT Code Diagnosis ICD10 Code Diagnosis Note [id number] Laura Briscoe MD Main Office [address] [facility] [place] [address] 08/24/2018 13:23:38 08/24/2018 14:53:00 Pile easily reducible 824854450 K64.1 Stage 2 - 3 internal hemorrhoid s: I do think he would benefit from infrared coagulatio n and he wants to proceed. Full informed consent was given including risks/bene fits and alternativ es. All questions were answered. His first IRC treatment was done today on the right posterior internal hemorrhoid . External hemorrhoids 239 71746 K64.4 These will improve with IRC. He understand s the only way to directly treat external hemorrhoid s would be with surgery and he does not wish to pursue this and his hemorrhoid s are not bad enough to require surgery. They really do not bother him. He of course needs to be eating a high fiber diet to maintain soft BM's. Factor V L eiden mutation [id number] D68.51 He is on the Xarelto and needs to stay on it as he has had 2 DVT's. I discussed with him that this does increase his risk of bleeding from the treatment. He needs to let me know immediatel y if he does have heavier bleeding. He knows he should not take any aspirin or NSAID products. [id number] Laura Briscoe MD Main Office [address] [facility] [place] [address] 09/13/2018 11:38:30 09/13/2018 12:25:11 Pile easily reducible 270976690 K64.1 Stage 2 - 3 internal hemorrhoid s: He is doing well with infrared coagulatio n treatment. His 2nd treatment was done today on the left lateral and right anterior internal hemorrhoid s. He knows to go off of his Xarelto for a few days if he does get heavier bleeding. External hemorrhoids 239 73589 K64.4 Improving with IRC. He understand s the only way to directly treat external hemorrhoid s would be with surgery and he does not wish to pursue this and his hemorrhoid s are not bad enough to require surgery. They really do not bother him. He of course needs to be eating a high fiber diet to maintain soft BM's. Factor V L eiden mutation [id number] D68.51 He is on the Xarelto and needs to stay on it as he has had 2 DVT's. I discussed with him that this does increase his risk of bleeding from the treatment. He needs to let me know immediatel y if he does have heavier bleeding. He knows he should not take any aspirin or NSAID products. [id number] Laura Briscoe MD Main Office [address] [place] [address] 11/01/2018 12:44:42 11/01/2018 13:15:45 Pile easily reducible 383606532 K64.1 Stage 2 - 3 internal hemorrhoid s: He is doing well with infrared coagulatio n treatment. His 3rd treatment was done today on the right posterior internal hemorrhoid . He knows to go off of his Xarelto for a few days if he does get heavier bleeding. External hemorrhoids 239 [address]3872 K64.4 Improved with IRC. He understand s the only way to directly treat external hemorrhoid s would be with surgery and he does not wish to pursue this and his hemorrhoid s are not bad enough to require surgery. They really do not bother him. He of course needs to be eating a high fiber diet to maintain soft BM's. He will always need to use the moist wipes. Factor V L eiden mutation [id number] D68.51 He is on the Xarelto and needs to stay on it as he has had 2 DVT's. I discussed with him that this does increase his risk of bleeding from the treatment. He needs to let me know immediatel y if he does have heavier bleeding. He knows he should not take any aspirin or NSAID products. Screening for malignant neoplasm of colon 152883561 Z12.11 He does have the name of a gastroente rologist that his hematologi st wanted him to see. He is going to make an appointmen t and is also going to check with his insurance on coverage. He could do a ColoGuard, but again, I am not certain his insurance will cover it. It is definitely safer with him being on the Xarelto. 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 I reviewed full informed consent with him including risks/bene fits and alternativ es. He wanted to proceed with treatment. His 4th overall (1st in this series) treatment was done today on his RP internal hemorrhoid . I advised he should stay on his Xarelto throughout treatment unless he gets heavy bleeding. He should go off of it for a couple of days if he does get heavier bleeding. He knows to not take any aspirin or NSAIDS while taking the Xarelto. External hemorrhoids 239 12775 K64.4 These will improve with IRC. He understand s the only way to directly treat external hemorrhoid s/skin tags would be with a surgical excision. He does not wish to pursue this and his hemorrhoid s are not bad enough to warrant surgery. They really do not bother him. He of course needs to be eating a high fiber diet to maintain soft BM's. He should always use the moist wipes. Factor V L eiden mutation [id number] D68.51 He is on the Xarelto and needs to stay on it as he has had 2 DVT's. I discussed with him that this does increase his risk of bleeding from the treatment. He needs to let me know immediatel y if he does have heavier bleeding. He knows he should not take any aspirin or NSAID products. Screening for malignant neoplasm of colon 556680664 Z12.11 He had a negative colonoscop y on 01/03/19 and does not need to have another one due to his age. 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 I advised he should stay on his Xarelto throughout treatment unless he gets heavy bleeding. He should go off of it for a couple of days if he does get heavier bleeding. He knows to not take any aspirin or NSAIDS while taking the Xarelto. External hemorrhoids 239 50135 K64.4 These should improve with IRC. He understand s the only way to directly treat external hemorrhoid s/skin tags would be with a surgical excision. He does not wish to pursue this and his hemorrhoid s are not bad enough to warrant surgery. They really do not bother him. He of course needs to be eating a high fiber diet to maintain soft BM's. He should always use the moist wipes. Factor V L eiden mutation 056399539 D68.51 He is on the Xarelto and needs to stay on it as he has had 2 DVT's. I discussed with him that this does increase his risk of bleeding from the treatment. He needs to let me know immediatel y if he does have heavier bleeding. He knows he should not take any aspirin or NSAID products. 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 I advised he should stay on his Xarelto unless he gets heavy bleeding. He should go off of it for a couple of days if he does get heavier bleeding. He knows to not take any aspirin or NSAIDS while taking the Xarelto. External hemorrhoids 239 68209 K64.4 I again discussed with him that the only way to directly treat external hemorrhoid s/skin tags would be with a surgical excision. He does not wish to pursue this and his hemorrhoid s are not bad enough to warrant surgery. They really do not bother him, he just does not like the swelling he gets with BM's. He of course needs to be eating a high fiber diet to maintain soft BM's. He should always use the moist wipes. Taking hig h risk medication [id number] 80287 Z91.89 He is on the Xarelto daily for his Factor 5 Leiden mutation and history of DVT's. He understand s this does increase his risk of having bleeding from the treatment (he has always done well but understand s every treatment is different ). Health Concerns Section Related Observation LastModified by Organization Detai ls LastModified Time None Recorded Concern Status LastModified by Organization Details LastModified Time None Recorded Advance Directives Directive Y: 08/10/2016 Payers Encounter Date Sequence Insurance Name Policy Number Policy Lala Covered Member ID Lala Member ID Guarantor Name 09/13/2018 1 [place] [employer] [place] [employer] 106 Mukund Paras [id number] Mukund R Paras 11/01/2018 1 [place] [employer] [place] [employer] 106 Mukund Paras [id number] Mukund R Paras 03/19/2020 1 [place] [employer] 106 Mukund Paras [id number] Mukund R Paras 03/27/2020 1 [place] [employer] 106 Mukund Paras [id number] Mukund R Paras 05/08/2020 1 [place] [employer] 106 Mukund Paras [id number] Mukund R Paras Notes Date Note Type Note Provider Name and Address Organization Details Recorded Time 09/13/2018 text/html No problem with tx and he is somewhat better. He did have some bleeding on the wipe with a few BM's right after treatment and then about 1 week after treatment he has some heavier bleeding around the stool itself. Since then, he has had no bleeding. It is easier to get clean after a BM. He does still have some swelling/prolapse with BM's, but it is smaller and easier to reduce. He has no discomfort. He has not been taking any Miralax because his BM's have been soft and easy to pass (prior to treatment he would take Miralax occasionally when he felt backed up ). Laura Briscoe MD [address] [facility],[address], [place], [address], [facility] 09/13/2018 20:25:53 11/01/2018 text/html Follow up: See previous visit and phone note from 10/09/18. He states that the bleeding he had did not reoccur after he called. He has had no bleeding since then. He is better that he was before his first treatment. He does still have some difficulty getting clean after BM's - he has to use the moist wipes still but it is much easier to get clean than it had been. He states they do not pop out as much . He has no difficulty staying clean. He has no discomfort. He has not had to use any Miralax. His BM's are soft and daily. We discussed his colonoscopy again. He has not had one since about 1998. We had discussed getting a ColoGuard, but I am not sure his insurance will pay for it since he is over age 76 (past the Medicare limit on screening). Laura Briscoe MD [address] [facility],[address], [place], [address], [facility] 11/01/2018 13:34:35 03/19/2020 text/html See previous visits. He states he did well after his last treatment on 11/01/18. He did end up getting a colonoscopy on his birthday (2018) and it was negative. He states he has had swelling and prolapse with BM's that has been persistent. It is not really worsening. He presents today for an evaluation and to have treatment again if it would be helpful. He understands that he was supposed to follow up at about 2 1/2 months after his last treatment almost 17 months ago. Bleeding: He has had no bleeding with BM's or leakage of blood in between BM's. Pain: None Itching: Not really Discharge: It is always hard to get clean after BM's because of swelling and irritation. He does not consistently use the moist wipes. He does not have difficulty staying clean - he does not have to re-wipe. He has no drainage. Prolapse: He feels a stage 2 - 3 prolapse (?external swelling) with every BM. He uses Preparation H to lubricate the area to be able to reduce it. He never has prolapse throughout the day even with activity or passing gas. External swelling: It is hard to tell if the swelling he has with BM's is external swelling or internal prolapse. Discomfort: None Previous Hemorrhoid Treatment: He has had the 3 [facility] procedures here. Previous Lower GI Endoscopy: He had a negative colonoscopy a year ago. This was his last one due to his age. Bowel Habits: His BM's have been daily and soft with just his dietary fiber. He takes a small amount of MOM rarely when he feels backed up . He tries to consistently eat a high fiber diet and drink plenty of water. His past medical history was reviewed and the only change was the colonoscopy. Laura Briscoe MD [address] [place] [address],[address], [place], [id number], [facility] [place] 03/19/2020 20:05:56 03/27/2020 text/html He had no significant problem with the last treatment. He states I did get bound up a little - he had some constipation. It was not bad enough to require him to take any MOM. He states his BM's are now back to daily and soft. He had no bleeding and stayed on his Xarelto daily. He does still have the sensation of they just come out when he has a BM or even sits down to urinate. It is very easy to reduce them. He does not feel this is any better. Laura Briscoe MD [address] [place] [address],[address], [place], [id number], [facility] [place] 03/27/2020 16:16:36 05/08/2020 text/html He had no proble m with the last treatment and overall he is better. He still has swelling and a question of prolapse with BM's. It is not uncomfortable/pain ful, it just makes it somewhat difficult to get clean. He does use the wipes consistently. He has no difficulty staying clean. He had no significant bleeding after the treatment (or at baseline) and he did stay on his xarelto. His BM's have been daily and soft with just his dietary fiber. Laura Briscoe MD [address] [place] [address],[address], [place], [id number], [facility] [place] 05/10/2020 11:51:30
== END 2024-07-19 10:32 | disposition home or self-care (01) ==
PROVIDERS: PCP Family Medicine; Visit Provider Nurse Practitioner Adult Health
DX: M25.469 Effusion, unspecified knee (principal); M25.561 Pain in right knee; S89.91XA Unspecified injury of right lower leg, initial encounter; Z96.651 Presence of right artificial knee joint
CPT/HCPCS: 73560

== ENCOUNTER 2024-08-15 08:45 | Outpatient (RCR) | payer BC, SELFPAY | END 2024-08-20 09:09 | disposition home or self-care (01) | LOC: ANHCPREHAB 08:45 | PROVIDERS: PCP Physician Assistant Medical; Visit Provider Internal Medicine Cardiovascular Disease | DX: Z95.2 Presence of prosthetic heart valve (principal) | CPT/HCPCS: 93798 ==